=== PATIENT | male | born 1975 | race Caucasian/White ===

== ENCOUNTER → 2022-12-30 13:51 | Outpatient (BNVA) | payer OTHER, SELFPAY | PROVIDERS: PCP Nurse Practitioner Family; Visit Provider Urology | DX: Z13.9 Encounter for screening, unspecified (principal); Z12.5 Encounter for screening for malignant neoplasm of prostate; N52.9 Male erectile dysfunction, unspecified | CPT/HCPCS: 51798 ==

== ENCOUNTER 2023-01-20 10:40 | Outpatient (REF) | payer OTHER, SELFPAY ==
[2023-01-20 13:14] LABS: PSA,Total (Free>4and<10) 0.28 ng/mL (0.00-4.00)
[2023-01-29 18:29] LABS: Testosterone, Free 61.4 pg/mL (35.0-155.0); Testosterone, Total 384 ng/dL (250-1100)
== END 2023-01-20 10:41 | disposition home or self-care (01) ==
LOC: HO.LAB 10:40
PROVIDERS: Visit Provider Urology
DX: N52.9 Male erectile dysfunction, unspecified (principal); Z12.5 Encounter for screening for malignant neoplasm of prostate
CPT/HCPCS: 36415; 84153; 84402; 84403

== ENCOUNTER → 2023-01-27 14:09 | Outpatient (BNVA) | payer OTHER, SELFPAY | PROVIDERS: PCP Nurse Practitioner Family; Visit Provider Urology | DX: Z13.89 Encounter for screening for other disorder (principal) ==

== ENCOUNTER → 2023-05-03 13:52 | Outpatient (BNVA) | payer OTHER, SELFPAY | PROVIDERS: PCP Nurse Practitioner Family; Visit Provider Urology ==